=== PATIENT | male | born 1990 | race Two or more races ===

== ENCOUNTER 2022-05-17 10:15 | Emergency (ER) | payer MEDICAID ==
[~2022-05-17] VITALS: Ht 167.6 cm; Wt 63.6 kg
[2022-05-17 12:43] VITALS: BP 119/73
== END 2022-05-17 14:14 | disposition home or self-care (01) ==
LOC: EMS 10:15
DX: I86.1 Scrotal varices (principal); N45.1 Epididymitis
CPT/HCPCS: 76870; 99284; Z7502

== ENCOUNTER 2025-02-13 13:03 | Emergency (ER) | payer MEDICAID, OTHER ==
[~2025-02-13] VITALS: Ht 177.8 cm; Wt 59.0 kg
[2025-02-13 13:25] VITALS: BP 125/70; PULSE 70; RESP 19; TEMP 97.6; O2SAT 96
== END 2025-02-13 15:05 | disposition left against medical advice (07) ==
LOC: EMS 13:06
DX: S51.851A Open bite of right forearm, initial encounter (principal); S61.452A Open bite of left hand, initial encounter; Z53.21 Procedure and treatment not carried out due to patient leaving prior to being seen by health care provider; W54.0XXA Bitten by dog, initial encounter; Y93.89 Activity, other specified; Y92.89 Other specified places as the place of occurrence of the external cause; Y99.8 Other external cause status